=== PATIENT | female | born 1990 | race Caucasian/White ===

== ENCOUNTER 2017-01-09 16:02 | Emergency (ER) | payer MEDICAID ==
[~2017-01-09] VITALS: Ht 160 cm; Wt 52.6 kg
[~2017-01-09 16:02] MED LIST: NORPTMEDS CO
[2017-01-09 16:58] VITALS: BP 143/87
[2017-01-09 16:58] LABS: Urine Bilirubin Negative (Negative); Urine Blood Negative /uL (Negative); Urine Color Yellow (Yellow); Urine Glucose Normal (Normal); Urine Mucus MODERATE (None Seen); Urine Nitrite Negative (Negative); Urine RBC 3 /hpf (0 - 4); Urine Squamous Epithelial Cell FEW /hpf (<5); Urine Urobilinogen Normal (Negative); Urine pH 5.5 (5.0-8.0)
[2017-01-09 17:09] LABS: Urine Ketone 2+ (Negative)
[2017-01-09] MEDS ORDERED: PROMETHAZINE HCL 25 MG/ML 1ML IM ONE (17:30)
[2017-01-09] MEDS ORDERED: cefTRIAXone SOD 1,000 MG VL IM ONE (17:30)
== END 2017-01-09 17:47 | disposition home or self-care (01) ==
LOC: ER 16:10
DX: O23.40 Unspecified infection of urinary tract in pregnancy, unspecified trimester (principal); O21.9 Vomiting of pregnancy, unspecified
CPT/HCPCS: 81001; 81025; 96372; 99284; J0696; J2550

== ENCOUNTER 2017-01-11 16:47 | Emergency (ER) | payer MEDICAID ==
[~2017-01-11] VITALS: Ht 160 cm; Wt 59.0 kg
[2017-01-11] MEDS ORDERED: SODIUM CHLORIDE 0.9% 1,000 ML IVB ONE (17:37)
[2017-01-11 18:58] LABS: Basophils # (auto) 0 uL; Basophils % (auto) 0.5 % (0.0-2.0); CONDITION Y; Eosinophils # (auto) 0.1 uL; Eosinophils % (auto) 1.4 % (0.0-7.0); Hematocrit 39.3 % (36.0-46.0); Lymphocytes % (auto) 34.9 % (10.0-50.0); Mean Corpuscular Hemoglobin 28.1 pg (28.0-32.0); Mean Corpuscular Hgb Conc. 33.1 g/dL (32.0-36.0); Mean Corpuscular Volume 84.8 fL (80.0-100.0); Monocytes # (auto) 0.4 uL; Monocytes % (auto) 7.6 % (0.0-12.0); Neutrophils # (auto) 3.2 uL; Neutrophils % (auto) 55.6 % (37.0-80.0); Platelet Count (auto) 170 10^3/uL (140-450); White Blood Cell 5.7 10^3/uL (4.4-10.8)
[2017-01-11 19:05] LABS: Calcium 8.5 mg/dL (8.5-10.1); Potassium 3.8 mmol/L (3.5-5.1)
[2017-01-11 19:07] LABS: BUN/Creatinine Ratio 15.7
[2017-01-11 19:10] LABS: Bilirubin, Total 0.5 mg/dL (0.2-1.0); Total Protein 7.8 g/dL (6.4-8.2)
[2017-01-11 19:33] LABS: Urine Color Yellow (Yellow); Urine Mucus FEW (None Seen); Urine RBC 673 /hpf (0 - 4); Urine Squamous Epithelial Cell MANY /hpf (<5); Urine WBC Clumps PRESENT /hpf (None Seen)
[2017-01-11 19:34] LABS: Urine Bilirubin Negative (Negative); Urine Glucose Normal (Normal); Urine Nitrite Negative (Negative); Urine Urobilinogen Normal (Negative); Urine pH 5.5 (5.0-8.0)
[2017-01-11 19:35] LABS: Urine Blood 2+ /uL (Negative); Urine Ketone 2+ (Negative)
[2017-01-11 20:55] VITALS: BP 104/72
== END 2017-01-11 21:29 | disposition home or self-care (01) ==
LOC: ER 16:49
DX: O21.9 Vomiting of pregnancy, unspecified (principal); O23.41 Unspecified infection of urinary tract in pregnancy, first trimester; O26.891 Other specified pregnancy related conditions, first trimester; E86.0 Dehydration; Z3A.00 Weeks of gestation of pregnancy not specified
CPT/HCPCS: 36415; 80053; 81001; 81025; 84702; 85025; 96360; 96361; 99285; J7030

== ENCOUNTER 2017-07-20 11:32 | Emergency (ER) | payer MEDICAID ==
[~2017-07-20] VITALS: Ht 160 cm; Wt 59.0 kg
[2017-07-20 12:42] VITALS: BP 123/85
== END 2017-07-20 12:52 | disposition home or self-care (01) ==
LOC: ER 11:32
DX: J10.1 Influenza due to other identified influenza virus with other respiratory manifestations (principal)
CPT/HCPCS: 87804

== ENCOUNTER 2018-01-05 09:43 | Emergency (ER) | payer MEDICAID ==
[~2018-01-05] VITALS: Ht 160 cm; Wt 54.2 kg
[2018-01-05 10:48] LABS: Urine Bacteria MOD /hpf (None Seen); Urine Blood 1+ /uL (Negative); Urine Mucus MODERATE (None Seen); Urine Specific Gravity 1.024 (1.001-1.035); Urine WBC 3 /hpf (0 - 5)
[2018-01-05] MEDS ORDERED: SODIUM CHLORIDE 0.9% 1,000 ML IV ONE (11:35)
[2018-01-05] MEDS ORDERED: PROMETHAZINE HCL 25 MG/ML 1ML IV ONE (11:45)
[2018-01-05 12:13] VITALS: BP 95/57
== END 2018-01-05 12:58 | disposition home or self-care (01) ==
LOC: ER 09:46
DX: O21.9 Vomiting of pregnancy, unspecified (principal); O26.891 Other specified pregnancy related conditions, first trimester; E86.0 Dehydration; Z3A.09 9 weeks gestation of pregnancy
CPT/HCPCS: 81001; 96361; 96374; 99285; J2550; J7030

== ENCOUNTER 2018-01-28 13:03 | Emergency (ER) | payer MEDICAID ==
[~2018-01-28] VITALS: Ht 160 cm; Wt 56.2 kg
[2018-01-28] MEDS ORDERED: SODIUM CHLORIDE 0.9% 1,000 ML IVB ONE (13:33)
[2018-01-28] MEDS ORDERED: PROMETHAZINE HCL 25 MG/ML 1ML IV PRN (13:45)
[2018-01-28] MEDS ORDERED: METOCLOPRAMIDE HCL 5MG/ml INJ 2ml VIAL IV ONE (14:30)
[2018-01-28 14:54] LABS: Urine Bacteria FEW /hpf (None Seen); Urine Blood Negative /uL (Negative); Urine Mucus FEW (None Seen); Urine Specific Gravity 1.017 (1.001-1.035); Urine WBC 2 /hpf (0 - 5)
[2018-01-28 15:28] LABS: Albumin 3.2 g/dL (3.4-5.0); BUN/Creatinine Ratio 19.6; Bilirubin, Total 0.3 mg/dL (0.2-1.0); Calcium 9.5 mg/dL (8.5-10.1); Potassium 4.1 mmol/L (3.5-5.1); Total Protein 7.3 g/dL (6.4-8.2)
[2018-01-28 16:22] LABS: Basophils # (auto) 0 uL; Basophils % (auto) 0.2 % (0.0-2.0); Eosinophils # (auto) 0 uL; Eosinophils % (auto) 0.8 % (0.0-7.0); Hematocrit 37.6 % (36.0-46.0); Hemoglobin 13.1 g/dL (12.2-16.2); Lymphocytes # (auto) 1.1 uL; Mean Corpuscular Hemoglobin 29.4 pg (28.0-32.0); Mean Corpuscular Hgb Conc. 34.9 g/dL (32.0-36.0); Mean Corpuscular Volume 84.3 fL (80.0-100.0); Monocytes # (auto) 0.3 uL; Monocytes % (auto) 5.7 % (0.0-12.0); Neutrophils % (auto) 68.3 % (37.0-80.0); Nucleated Red Blood Cells % 0.1 %; Platelet Count (auto) 194 10^3/uL (140-450); Red Blood Cells 4.46 10^6/uL (4.0-5.20); Red Cell Distribution Width 12.9 % (11.8-14.3); White Blood Cell 4.4 10^3/uL (4.4-10.8)
[2018-01-28 17:15] VITALS: BP 109/73
== END 2018-01-28 17:17 | disposition home or self-care (01) ==
LOC: ER 13:08
DX: O21.0 Mild hyperemesis gravidarum (principal); Z3A.01 Less than 8 weeks gestation of pregnancy; Z88.8 Allergy status to other drugs, medicaments and biological substances
CPT/HCPCS: 36415; 80053; 81001; 82010; 83690; 84702; 85025; 94761; 96361; 96374; 99284; J2765; J7030

== ENCOUNTER 2018-07-06 01:04 | Observation (INO) | payer MEDICAID ==
[~2018-07-06] VITALS: Ht 160 cm; Wt 63.5 kg
[2018-07-06] MEDS ORDERED: LACTATED RINGER'S 1,000 ML IV ONE (01:43)
[2018-07-06] MEDS ORDERED: TERBUTALINE SULFATE 1 MG/ML 1ML VIAL SC ONE ×2 (01:45→01:46)
[2018-07-06] MEDS ORDERED: ceFAZolin 1GM 2 GM in D5W 5% 100 ML IV ONE (02:00)
[2018-07-06] MEDS ORDERED: ceFAZolin 1GM/50ML 100 ML IV ONE (02:07)
[2018-07-06 02:24] LABS: Alcohol, Urine < 3.0 mg/dL (0-5); Amphetamine Screen, Urine NEGATIVE (NEGATIVE); Barbiturate Scree,Urine NEGATIVE (NEGATIVE); Benzodiazephine Screen, Urine NEGATIVE (NEGATIVE); Cannabinoid Screen, Urine NEGATIVE (NEGATIVE); Cocaine Screen, Urine NEGATIVE (NEGATIVE); Opiate Scree,Urine NEGATIVE (NEGATIVE); Phencyclidine Screen, Urine NEGATIVE (NEGATIVE)
[2018-07-06 02:29] LABS: Urine Bacteria FEW /hpf (None Seen); Urine Blood 2+ /uL (Negative); Urine Specific Gravity 1.021 (1.001-1.035); Urine WBC 68 /hpf (0 - 5)
[2018-07-06] MEDS ORDERED: TERBUTALINE SULFATE 1 MG/ML 1ML VIAL SC SCH (02:45)
[2018-07-06] MEDS ORDERED: ACETAMINOPHEN 325 MG TAB PO ONE ×2 (05:00→05:17)
[2018-07-06] MEDS ORDERED: BETAMETHASONE ACET (6MG/ML) 5ML VIAL IM ONE (06:00)
[2018-07-07] MEDS ORDERED: CEPH250C PO (06:24)
== END 2018-07-06 07:00 | disposition home or self-care (01) | DRG 566 ==
LOC: LDRP 01:04
PROVIDERS: ADMIT Obstetrics & Gynecology; ATTEND Obstetrics & Gynecology
DX: O23.43 Unspecified infection of urinary tract in pregnancy, third trimester (principal); O26.893 Other specified pregnancy related conditions, third trimester; M54.9 Dorsalgia, unspecified; O21.2 Late vomiting of pregnancy; R10.30 Lower abdominal pain, unspecified; Z3A.33 33 weeks gestation of pregnancy
CPT/HCPCS: 59025; 76815; 80307; 81001; 81002; 87086; 96365; 96372; G0378; J0690; J0702; J3105; 96366; J7060

== ENCOUNTER 2018-07-07 05:05 | Observation (INO) | payer MEDICAID ==
[~2018-07-07] VITALS: Ht 30.5 cm; Wt 0.5 kg
[2018-07-07] MEDS ORDERED: LACTATED RINGER'S 1,000 ML IV ONE (05:45)
[2018-07-07] MEDS ORDERED: ONDANSETRON HCL 4 MG/2 ML VIAL ONE (05:45)
[2018-07-07] MEDS ORDERED: ONDANSETRON HCL 4 MG/2 ML VIAL IV ONE (05:45)
[2018-07-07] MEDS ORDERED: BETAMETHASONE ACET (6MG/ML) 5ML VIAL IM ONE (05:45)
[2018-07-07] MEDS ORDERED: BETAMETHASONE ACET (6MG/ML) 5ML VIAL ONE (05:45)
[2018-07-07] MEDS ORDERED: CEPH250C PO (06:24)
== END 2018-07-07 07:00 | disposition home or self-care (01) | DRG 566 ==
LOC: LDRP 05:05
PROVIDERS: ADMIT Obstetrics & Gynecology; ATTEND Obstetrics & Gynecology
DX: O21.2 Late vomiting of pregnancy (principal); O60.03 Preterm labor without delivery, third trimester; O26.893 Other specified pregnancy related conditions, third trimester; R51 Headache; Z3A.33 33 weeks gestation of pregnancy
CPT/HCPCS: 59025; 81002; 94760; 96372; G0378; J0702; J2405; 96361; 96365; 96366; 96374

== ENCOUNTER 2018-07-08 07:30 | Observation (INO) | payer MEDICAID ==
[~2018-07-08 07:30] MED LIST changes: +CEPH250C PO; -NORPTMEDS CO
== END 2018-07-08 10:05 | disposition home or self-care (01) | DRG 563 ==
LOC: LDRP 07:30
PROVIDERS: ADMIT Obstetrics & Gynecology; ATTEND Obstetrics & Gynecology
DX: O60.03 Preterm labor without delivery, third trimester (principal); O36.8130 Decreased fetal movements, third trimester, not applicable or unspecified; Z3A.34 34 weeks gestation of pregnancy
CPT/HCPCS: 59025; 76818; 81002; G0378

== ENCOUNTER 2018-08-02 19:31 | Observation (INO) | payer MEDICAID | END 2018-08-02 21:15 | disposition home or self-care (01) | DRG 566 | LOC: LDRP 19:31 | PROVIDERS: ADMIT Specialist; ATTEND Specialist | DX: O26.893 Other specified pregnancy related conditions, third trimester (principal); Z3A.37 37 weeks gestation of pregnancy | CPT/HCPCS: 59025; 81002; G0378 ==

== ENCOUNTER 2019-06-29 23:45 | Emergency (ER) | payer MEDICAID ==
[~2019-06-29] VITALS: Ht 160 cm; Wt 52.2 kg
[2019-06-30 00:36] VITALS: BP 129/78
== END 2019-06-30 01:24 | disposition home or self-care (01) ==
LOC: ER 23:45
DX: J06.9 Acute upper respiratory infection, unspecified (principal); N39.0 Urinary tract infection, site not specified

== ENCOUNTER 2021-08-27 07:23 | Emergency (ER) | payer MEDICAID ==
[~2021-08-27] VITALS: Ht 160 cm; Wt 59.0 kg
[2021-08-27 07:24] VITALS: BP 103/75
[2021-08-27] MEDS ORDERED: PHENAZOPYRIDINE HCL 100 MG TAB PO ONE (08:00)
[2021-08-27 08:23] LABS: Urine Bacteria FEW /hpf (None Seen); Urine Blood 1+ /uL (Negative); Urine Mucus FEW (None Seen); Urine WBC 570 /hpf (0 - 5); Urine WBC Clumps PRESENT /hpf (None Seen)
[2021-08-27] MEDS ORDERED: cefTRIAXone SOD 1,000 MG VL IM ONE (08:30)
[2021-08-27] MEDS ORDERED: SULF400T11 PO (08:31)
[2021-08-27] MEDS ORDERED: PHEN200T16 PO (08:31)
== END 2021-08-27 08:55 | disposition home or self-care (01) ==
LOC: ER 07:23
DX: N39.0 Urinary tract infection, site not specified (principal)
CPT/HCPCS: 81001; 96372; 99283; J0696

== ENCOUNTER 2022-03-31 22:45 | Emergency (ER) | payer MEDICAID ==
[~2022-03-31] VITALS: Ht 160 cm; Wt 59.0 kg
[~2022-03-31 22:45] MED LIST changes: -CEPH250C PO; +PHEN200T16 PO; +SULF400T11 PO
[2022-04-01 00:17] LABS: Urine Bacteria MOD /hpf (None Seen); Urine Blood 1+ /uL (Negative); Urine Mucus FEW (None Seen); Urine Specific Gravity 1.021 (1.001-1.035); Urine WBC 563 /hpf (0 - 5)
[2022-04-01] MEDS ORDERED: ACET-1158 PO (00:42)
[2022-04-01] MEDS ORDERED: NITR-52 PO (00:42)
[2022-04-01] MEDS ORDERED: cefTRIAXone SOD 1,000 MG VL IM ONE (00:45)
[2022-04-01 01:00] VITALS: BP 102/71
== END 2022-04-01 01:20 | disposition home or self-care (01) ==
LOC: ER 22:45
DX: N39.0 Urinary tract infection, site not specified (principal); Z79.899 Other long term (current) drug therapy; Z88.8 Allergy status to other drugs, medicaments and biological substances
CPT/HCPCS: 81001; 96372; 99283; J0696

== ENCOUNTER 2022-12-02 12:13 | Emergency (ER) | payer MEDICAID, OTHER ==
[~2022-12-02] VITALS: Ht 160 cm; Wt 67.0 kg
[~2022-12-02 12:13] MED LIST changes: +ACET500T58 PO; +NITR-52 PO; +PHEN-922 PO; -PHEN200T16 PO
[2022-12-02 13:28] VITALS: BP 126/83
== END 2022-12-02 13:58 | disposition left against medical advice (07) ==
LOC: ER 12:13
DX: T22.012A Burn of unspecified degree of left forearm, initial encounter (principal); Z53.21 Procedure and treatment not carried out due to patient leaving prior to being seen by health care provider; X08.8XXA Exposure to other specified smoke, fire and flames, initial encounter; Y93.89 Activity, other specified; Y92.89 Other specified places as the place of occurrence of the external cause; Y99.8 Other external cause status

== ENCOUNTER 2023-04-27 05:56 | Emergency (ER) | payer MEDICAID, OTHER ==
[~2023-04-27] VITALS: Ht 160 cm; Wt 70.0 kg
[~2023-04-27 05:56] MED LIST changes: +CYCL-839 PO; +IBUP1TAB5 PO
[2023-04-27 07:01] LABS: Urine Bacteria FEW /hpf (None Seen); Urine Blood 1+ /uL (Negative); Urine Clarity Clear (Clear); Urine Color Yellow (Yellow); Urine Mucus FEW (None Seen); Urine Protein, UAD TRACE (Negative); Urine Specific Gravity 1.029 (1.001-1.035); Urine Urobilinogen Normal (Negative); Urine WBC 5 /hpf (0 - 5)
[2023-04-27 07:39] VITALS: BP 109/78; PULSE 119; RESP 18; TEMP 98.8; O2SAT 100
[2023-04-27] MEDS ORDERED: KETOROLAC TROMETH 60MG/2ML VIAL IM ONE (08:00)
[2023-04-27] MEDS ORDERED: NITR-87 PO (08:30)
[2023-04-27] MEDS ORDERED: ACET500T58 PO (08:30)
[2023-04-27] MEDS ORDERED: IBUP-1455 PO (08:30)
== END 2023-04-27 08:50 | disposition home or self-care (01) ==
LOC: ER 05:56
DX: N39.0 Urinary tract infection, site not specified (principal); M54.50 Low back pain, unspecified; Z79.1 Long term (current) use of non-steroidal anti-inflammatories (NSAID); Z79.899 Other long term (current) drug therapy; Z88.8 Allergy status to other drugs, medicaments and biological substances
CPT/HCPCS: 72100; 81001; 81025; 96372; 99284; J1885

== ENCOUNTER 2024-02-13 11:11 | Emergency (ER) | payer MEDICAID ==
[~2024-02-13 11:11] MED LIST changes: +IBUP-1455 PO; +NITR-87 PO; +OMEP-434 PO; +ZOFR4T PO
[2024-02-13 14:46] VITALS: BP 124/81; PULSE 104; RESP 18; TEMP 98.6; O2SAT 96
[2024-02-13] MEDS ORDERED: LABETALOL INJECTION 250 MG in SODIUM CHL 0.9% 200 ML IV ONE (16:15)
== END 2024-02-13 19:11 | disposition left against medical advice (07) ==
LOC: ER 11:11
DX: B34.8 Other viral infections of unspecified site (principal); R00.0 Tachycardia, unspecified; R06.00 Dyspnea, unspecified; Z87.440 Personal history of urinary (tract) infections

== ENCOUNTER 2024-09-20 08:39 | Emergency (ER) | payer MEDICAID, OTHER ==
[~2024-09-20] VITALS: Ht 160 cm; Wt 68.9 kg
--- NOTE | 2024-09-20 09:01 | ECG ---
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
[2024-09-20 09:12] VITALS: BP 122/73; PULSE 97; RESP 18; TEMP 98.7; O2SAT 98
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
[2024-09-20] MEDS ORDERED: IBUP-1454 PO (10:33)
[2024-09-20] MEDS ORDERED: METH-1181 PO (10:33)
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
== END 2024-09-20 10:40 | disposition home or self-care (01) ==
LOC: ER 08:39
DX: R07.89 Other chest pain (principal); Z79.899 Other long term (current) drug therapy; V89.2XXA Person injured in unspecified motor-vehicle accident, traffic, initial encounter; Y93.89 Activity, other specified; Y92.89 Other specified places as the place of occurrence of the external cause; Y99.8 Other external cause status
CPT/HCPCS: 71045; 93005